=== PATIENT | male | born 1985 | race Caucasian/White ===

== ENCOUNTER 2024-06-15 08:45 | Emergency (ER) | payer OTHER, SELFPAY ==
[2024-06-15 08:48] VITALS: BP 154/100
--- NOTE | 2024-06-15 10:18 | ED.GENMED ---
History of Present Illness
General
Chief Complaint: Headache
Source: patient
Exam Limitations: none
Time Seen by Provider: 06/15/24 10:17
Nursing documentation reviewed up to this point in time: agreed with
History of Present Illness
History of Present Illness:
38 yo male sent here from , hx Crohn's disease, with right side neck pain for past month. Went to twice and put on steroid taper which helped but pain returns as he weans off. Now pain is radiating up to right side scalp. No recollection of
overuse or injury. 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 Denies pain with swallowing. Denies fever/chills.
Past History
Past History
ED Past Medical History: Other (Crohn's disease)
ED Past Surgical History: None
Social History
Tobacco: Non-smoker
Alcohol: None
Personal:
Living: with family
Employment: Employed
Review of Systems
Review of Systems
Allergies reviewed?: Yes
All Other Systems: ROS reviewed and negative except as documented in HPI and ROS
Constitutional: Denies fever
Respiratory: Denies trouble breathing
Cardiac: Denies chest pain
ABD/GI: Denies abdominal pain or nausea
Musculoskeletal: Reports other (Right side neck pain, right side scalp pain)
Skin: Reports no symptoms
Neurological: Reports no symptoms
Phy Exam
Physical Exam
Physical Exam:
GENERAL: No acute distress. A&Ox3.
CONSTITUTIONAL: Afebrile.
EYES: PERRL, conjunctivae normal
Neck: Supple
ENMT: moist mucus membranes, Pharynx nl
RESPIRATORY: Regular respirations, nonlabored, lungs clear.
CARDIOVASCULAR: Regular rate and rhythm, no murmurs, no rubs.
GI: Soft, nontender, normal BS
MUSCULOSKELETAL: Has good ROM of neck but pain exacerbated with any movement of the neck. Point tender over mid right occipital scalp at level of above the ear. Mild tenderness of right paracervical ST. No spinal bony tenderness. Moves with ease.
Well perfused.
SKIN: Warm, dry, pink
PSYCH: Depressed mood and affect. Well kept, interactive and appropriate
NEUROLOGIC: Awake, alert and oriented. No focal neurological deficits. Ambulates well with steady gait.
Course
Orders/Labs/Results
Orders:
Orders
06/15/24 10:33
CT Head W/o Iv Contrast Urgent
Comment:
Reason For Exam: right cephalgia
CT Neck With Iv Contrast Urgent
Comment:
Reason For Exam: Right posterior neck pain
06/15/24 10:42
CRP [C-Reactive Protein] Urgent
Complete Blood Count/With Diff Urgent
Comprehensive Metabolic Panel Urgent
Sed Rate [Erythrocyte Sed Rate] Stat
06/15/24 11:50
Acetaminophen [Tylenol] 1,000 mg PO NOW STA
06/15/24 12:[address] Non Medication Order As Directed
Physician Order: Please recheck BP, thanks
Abnormal Lab Results
06/15/24
10:42
Hgb 12.0 L g/dL
(13.0-18.0)
Hct 37.5 L %
(39.0-52.0)
MCV 75.9 L fL
(80.0-94.0)
MCH 24.3 L pg
(27.0-31.0)
MCHC 32.0 L g/dL
(33.0-37.0)
RDW 15.9 H %
(11.5-14.5)
Abs Immat Gran (auto) 0.1 H 10^3/uL
(0-0.05)
Absolute Neuts (auto) 7.7 H 10^3/uL
(1.4-6.5)
Absolute Monos (auto) 0.8 H 10^3/uL
(0.1-0.6)
Lymphocytes % 16.8 L %
(20.5-51.1)
BUN 26 H mg/dl
(9-20)
C-Reactive Protein 23.20 H mg/L
(0.0-10.00)
06/15/24 10:42
06/15/24 10:42
Vital Signs
Initial and Last Documented VS:
Initial Vital Signs
Temp Pulse Resp BP Pulse Ox
98.2 F 95 16 154/100 98
06/15/24 08:48 06/15/24 08:48 06/15/24 08:48 06/15/24 08:48 06/15/24 08:48
Last Documented Vital Signs
Temp Pulse Resp BP Pulse Ox
98.2 F 78 18 124/86 97
06/15/24 08:48 06/15/24 12:38 06/15/24 12:38 06/15/24 12:38 06/15/24 12:38
Procedures
Other
Indication for procedure:: right cephalgia
Procedure completed by: I Day [employer] PERSON
Additional Procedure:
After cleansing area with alcohol, Bupivicaine 3 ml used for greater occipital nerve block.
MDM/Problems Addressed
Differential Diagnosis Includes:
cervical strain, deep tissue infection
cephalgia, occipital neuralgia
MDM/Problems Addressed:
38 yo male sent here from , hx Crohn's disease, with right side neck pain for past month. Went to twice and put on steroid taper which helped but pain returns as he weans off. Now pain is radiating up to right side scalp. No recollection of
overuse or injury. 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 Denies pain with swallowing. Denies fever/chills.
Trigger point tenderness right occipital scalp.
No relief with greater occipital nerve block
CBC with no clinically significant abnormality
CMP with no clinically significant abnormality
CRP mildly elevated at 23.2
ESR is normal
CT neck with IV contrast radiology report read: IMPRESSION: No abnormal focal fluid collection to suggest an abscess. Straightening of the lordotic curve
CT Head radiology report read: IMPRESSION: No acute intracranial abnormality.
All results discussed with pt. All questions answered. Pt comfortable going home.
Case discussed with Dr. Bobo
Plan: Tegretol BID for one week, f/u w PCP or Neuro if not improved
Ambulated out with normal gait.
*Critical Care Note
Total Time (30-74mins, 75-104mins- exclusive of procedures): Not Applicable
ED Attending Note
-
Portions of this chart may have been created with voice recognition software.� Occasional wrong word or��sound alike� substitutions may have occurred due to the inherent limitations of voice recognition software.
Discharge Plan
Departure
Patient Disposition: Home (Routine Discharge)
Date of Disposition: 06/15/24
Time of Disposition: 12:31
Patient with high blood pressure during this ER visit?: No
Condition: Fair
Discharge Problem:
Neck pain on right side, Head pain cephalgia
Instructions: Headache, Adult ED, Neck Pain ED
Prescriptions:
New
carbamazepine [Tegretol] 200 mg tablet
200 mg PO BID Qty: 14 0RF
Referrals:
Severiano Oneill MD [Active] - As needed
UNKNOWN - PT DOES,NOT KNOW [Family Provider] -
Stand Alone Forms: Return to Work
Activity Restrictions/Additional Instructions:
As we discussed, there is nothing worrisome in your workup here today.
You may continue Tylenol 1000 mg up to 3 times a day as needed
I sent a prescription to your pharmacy for Tegretol 200 mg to take twice a day for nerve pain in the scalp for the next week to see if it helps.
If you get no relief follow-up with your primary doctor and/or I have given you the name of a neurologist to follow-up with
Interventions
Interventions:
*Risk Screen - Suicide Last Done: 06/15/24 08:52
*General Assessment Last Done: 06/15/24 08:48
*Neglect/Abuse Screening Last Done: 06/15/24 08:48
ED- Fall Risk Assessment Last Done: 06/15/24 10:39
*ED COVID-19 Vaccine History Last Done: 06/15/24 10:39
*Nursing Disposition Last Done: 06/15/24 12:48
ED- Neurological Assessment Last Done: 06/15/24 10:39
Discharge Date and Time
Discharge Date/Time: 06/15/24 12:49
Print Language: [id number]
[2024-06-15 10:39] VITALS: BMI 37.2
[2024-06-15 11:07] LABS: % Basophils 0.6 % (0-2); % Eosinophils 1.9 % (0-6); % Immature Granulocytes 0.5 % (0-0.5); % Lymphocytes 16.8 % (20.5-51.1); % Monocytes 7.9 % (1.7-9.3); % Neutrophils 72.3 % (42.2-75.2); Absolute Basophils 0.1 10^3/uL (0-0.2); Absolute Eosinophils 0.2 10^3/uL (0-0.7); Absolute Immature Granulocytes 0.1 10^3/uL (0-0.05); Absolute Lymphocytes 1.8 10^3/uL (1.2-3.4); Absolute Monocytes 0.8 10^3/uL (0.1-0.6); Absolute Neutrophils 7.7 10^3/uL (1.4-6.5); Hematocrit 37.5 % (39.0-52.0); Mean Corpuscular Hgb 24.3 pg (27.0-31.0); Mean Corpuscular Volume 75.9 fL (80.0-94.0); Nucleated Red Blood Cells % 0 % (-); Platelet Count 308 10^3/uL (130-400); Red Blood Cell Count 4.94 10^6/uL (4.70-6.10); Red Cell Dist. Width 15.9 % (11.5-14.5); White Blood Cell Count 10.6 10^3/uL (4.8-10.8)
[2024-06-15 11:12] LABS: ALT (SGPT) 29 U/L (0-50); AST (SGOT) 21 U/L (17-59); Albumin 3.7 g/dl (3.5-5.0); Alkaline Phosphatase 79 U/L (38-126); Blood Urea Nitrogen 26 mg/dl (9-20); Calcium 9.1 mg/dl (8.4-10.2); Carbon Dioxide 28 mmol/L (22-30); Chloride 104 mmol/L (98-107); Estimated Creatinine Clearance 125 ml/min; Glucose 90 mg/dl (70-99); Potassium 4.7 mmol/L (3.5-5.1); Sodium 140 mmol/L (135-145); Total Bilirubin 0.2 mg/dl (0.2-1.3); Total Protein 6.5 g/dl (6.3-8.2); eGFR > 60.00
[2024-06-15 11:37] LABS: Erythrocyte Sed Rate 19 mm/hour (0-20)
[2024-06-15] MEDS: TYLENOL 1000 MG PO (11:59)
[2024-06-15 12:38] VITALS: BP 124/86
== END 2024-06-15 12:49 | disposition home or self-care (01) ==
LOC: EMR 08:45
PROVIDERS: Registered Nurse; EMERGENCY PHYSICIAN Student in an Organized Health Care Education/Training Program
DX: R51.9 Headache, unspecified (principal); M54.2 Cervicalgia
CPT/HCPCS: 99285; 64405; 70450; 70491; 80053; 85025; 85652; 86140; Q9967